=== PATIENT | female | born 1960 | race Caucasian/White ===

== ENCOUNTER 2017-06-27 07:13 | Day surgery (SDC) | payer OTHER ==
[~2017-06-27] VITALS: Ht 154.9 cm; Wt 87.5 kg
[2017-06-27] VITALS (7 sets, daily range): BP systolic 111–150; BP diastolic 59–88; PULSE 79–99; RESP 13–20; Ht 154.9 cm; Wt 87.5 kg
[2017-06-27] MEDS ORDERED: IOHEXOL 300MG/ML 30 ML BTL ONE (09:17)
[2017-06-27] MEDS ORDERED: MIDAZOLAM 1 MG/ML 2 ML INJ ONE (09:24)
[2017-06-27] MEDS ORDERED: PROPOFOL 20 ML ONE (09:24)
[2017-06-27] MEDS ORDERED: FENTAnyl 50 MCG/ML VIAL ONE (09:24)
[2017-06-27] MEDS ORDERED: morphine (1 MG/ML) 10ML SYRINGE IV PRN ×2 (09:30)
[2017-06-27] MEDS ORDERED: hydrALAzine 20 MG INJ IV PRN (09:30)
[2017-06-27] MEDS ORDERED: MEPERIDINE 25 MG INJ IV PRN (09:30)
[2017-06-27] MEDS ORDERED: EPHEDrine SULFATE 50 MG/5 ML SYG IV PRN (09:30)
[2017-06-27] MEDS ORDERED: DIPHENHYDRAMINE 50 MG INJ IV PRN (09:30)
[2017-06-27] MEDS ORDERED: FENTAnyl 50 MCG/ML VIAL IV PRN ×2 (09:30)
[2017-06-27] MEDS ORDERED: LABETALOL HCL 20MG INJ IV PRN (09:30)
[2017-06-27] MEDS ORDERED: ONDANSETRON 4 MG INJ IV PRN (09:30)
[2017-06-27] MEDS ORDERED: CIPROFLOXACIN 400 MG in D5W 200 ML IVPB SCH (09:30)
[2017-06-27] MEDS ORDERED: OXYCODONE/ACETAMINOPHEN (5/325) TAB PO PRN (09:30)
[2017-06-27] MEDS ORDERED: CIPROFLOXACIN 400MG/D5W 200 ML ONE (10:15)
[2017-06-27] MEDS ORDERED: ROCURONIUM 50 MG INJ ONE (10:15)
[2017-06-27] MEDS ORDERED: SUGAMMADEX SODIUM 200 MG/2 ML VIAL IV ONE (10:27)
[2017-06-27] MEDS ORDERED: DEXAMETHASONE 4 MG/ML 1 ML INJ ONE (10:28)
[2017-06-27] MEDS ORDERED: ONDANSETRON 4 MG INJ ONE (10:28)
[2017-06-27] MEDS ORDERED: METOCLOPRAMIDE 10 MG INJ ONE (10:28)
[2017-06-27] MEDS ORDERED: KETOROLAC 30 MG INJ ONE (10:43)
--- NOTE | 2017-06-27 10:46 | PDOCDIS ---
Discharge Instructions CONDITION Patient Condition: Good HOME CARE INSTRUCTIONS: Diet Instructions: Regular ACTIVITY: Activity Restrictions: No Restrictions FOLLOW UP/APPOINTMENTS Follow-up Plan one month for renal US, call to make date and time SCHOOL/WORK RELEASE May return to School/Work on: Jun 28, 2017 HANS CHAO Jun 27, 2017 10:46
--- NOTE | 2017-06-27 10:47 | HPN ---
Date/Time of Note Date/Time of Note DATE: 06/27/17 TIME: 10:47 Interval H&P Admission Note Pt. seen H&P reviewed: No system changes HANS CHAO Jun 27, 2017 10:47
--- NOTE | 2017-06-27 10:49 | OPR ---
Date/Time of Note Date/Time of Note DATE: 06/27/17 TIME: 10:47 Operative Report Preoperative Diagnosis left ureteral stone Postoperative Diagnosis same Operation/Procedure Performed cysto, left retrograde pyelogram Surgeon lincoln Dimpling Machine Operator none Anesthesia Type: general Estimated Blood Loss: none Transfusion none Specimen none Grafts/Implants none Tubes/Drains none Complications none Pt Condition Post Procedure: stable Disposition: PACU Indications stone Procedure Description dictation [id number] HANS CHOA Jun 27, 2017 10:49
--- NOTE | 2017-06-27 11:14 | OPR ---
DATE OF OPERATION: BRIEF HISTORY: Lexus Adams is a 56-year-old female. CT scan has demonstrated a 6 x 11 mm obstruc ting left mid ureteral stone with a followup KUB demonstrating a probable 9 mm left ureteral stone. She continues with flank pain and emesis. She presents today for cystoscopy, left retrograde pyelo gram, insertion of stent, left ESWL. How the procedure is performed, potential complications and si de effects were reviewed. All questions have been answered. PREOPERATIVE DIAGNOSIS: Left mid ureteral stone. POSTOPERATIVE DIAGNOSIS: Status post passing of stone. PROCEDURE: Cystoscopy, left retrograde pyelogram. SURGEON: Dr. Chao. ANESTHESIA: General. FINDINGS: Nonobstructing left ureteral stone, nonobstructing right renal stone. DESCRIPTION OF PROCEDURE: The patient was brought into the operating room and placed on the [email or web address] SLX lithotripter for left extracorporeal shock wave lithotripsy and insertion of stent. A timeout was undertaken. Appropriate pressure points were padded and she received preoperative antib iotic therapy. A KUB with obliques was obtained which did not demonstrate any radiodense stone anette en overlying the course of the ureter or left kidney. An approximately 7 mm stone was noted over th e right kidney. Cystoscopy was undertaken with 12-degree and 30-degree angle lens. The bladder was inspected in a systematic fashion. No foreign body, bladder stone or tumor could be appreciated. Bilateral ureteral orifices within normal limits. A left retrograde pyelogram was undertaken which demonstrates a normal course and caliber of the ureter except there was marked dilatation of the ure ter, renal pelvis and calices with columnization of the contrast down to where the 5-Telugu open-end ed stent was placed into the ureteral orifice. There is no filling defect within the ureter. Contr ast completely emptied from the upper tract, thus consistent with passing of a stone and no active s tone disease and thus, patient was extubated and brought to the recovery room. She will follow up i n the office in 1 month's time, at which point, a followup renal ultrasound will be obtained. She w as discharged to home on [place] 5/325 one tablet p.o. q.6h. p.r.n., dispensed #20, no refill. All qu estions have been answered. Dictated By: HANS CHAO MD EGR/NTS Conf#: [id number] [facility]#: [id number]
== END 2017-06-27 11:50 | disposition home or self-care (01) ==
LOC: SDS 07:13
PROVIDERS: ATTEND Urology
DX: N13.2 Hydronephrosis with renal and ureteral calculous obstruction (principal)
CPT/HCPCS: 52005; J0744; J1100; J1885; J2250; J2405; J2765; J3010; Q9967; Z7512; Z7610; C2617